=== PATIENT | male | born 1965 | race Caucasian/White ===

== ENCOUNTER → 2022-05-03 | Outpatient (CLI) | payer OTHER, MEDICAID, SELFPAY | END | disposition home or self-care (01) | PROVIDERS: Visit Provider Otolaryngology | DX: H92.13 Otorrhea, bilateral (principal) | CPT/HCPCS: 87070; 87075; 87077; 87205 ==

== ENCOUNTER 2024-07-08 12:24 | Emergency (ER) | payer OTHER, MEDICAID, SELFPAY ==
[2024-07-08 12:25] VITALS: BP 147/85; PULSE 61; RESP 14; TEMP 36.8; O2SAT 99; BMI 27.5
--- NOTE | 2024-07-08 12:43 | EKG12_ITS ---
Test Reason : PALPITATIONS Blood Pressure : / mmHG Vent. Rate : 060 BPM Atrial Rate : 060 BPM P-R Int : 350 ms QRS Dur : 084 ms QT Int : 416 ms P-R-T Axes : 040 049 -21 degrees QTc Int : 416 ms Sinus rhythm with 1st degree A-V block T wave abnormality, consider inferior ischemia Abnormal ECG Confirmed by NETTE BARDALES, KRISHAN ([id number]), visual effects editor JOHNIE VILLA ([id number]) on 07/09/2024 2:54:38 PM Referred By: Sole Mendoza Confirmed By:KRISHAN PERDUE MD
--- NOTE | 2024-07-08 12:55 | RAD_ITS ---
STUDY: X-RAY CHEST REASON FOR EXAM: Male, 58 years old. Chest pain TECHNIQUE: PA and lateral views of the chest. COMPARISON: Comparison is made with prior study dated April 02, 2015. FINDINGS: EKG electrodes are seen. Hyperinflation. The lungs are clear. There is no demonstrated pleural abnormality. Normal size heart. Normal mediastinum and nick. Normal visualized pulmonary arteries. Normal visualized aortic arch and descending thoracic aorta. There are degenerative changes of the visualized thoracic spine. Normal visualized ribs, clavicles, and shoulders. There is no demonstrated abnormality of the visualized soft tissue structures of the upper abdomen. RAD/Chest PA and Lateral IMPRESSION: Hyperinflation. No acute abnormality is seen. Electronically Signed: William Beal MD at 13:25 EDT ,
[2024-07-08 13:01] LABS: Absolute Lymphocyte Count 1.43 X10^3/uL (0.83-4.51); Absolute Neutrophil Count 5.4 X10^3/uL (2.0-7.7); Basophil# 0.03 X10^3/uL; Basophil% 0.4 % (0-1); Eosinophil# 0.07 X10^3/uL; Eosinophils% 0.9 % (0-5); Hematocrit 47.8 % (40-54); Hemoglobin 16.6 g/dL (13.0-16.5); Lymphocyte # 1.43 X10^3/ul (0.83-4.51); Lymphocyte % 18.8 % (19-41); Mean Corp Hgb Conc 34.7 g/dL (32-36); Mean Corpuscular Hgb 31.4 pg (27.0-32.0); Mean Corpuscular Volume 90.5 fL (80-94); Mean Platelet Vol. 9.4 fl (6.2-12.0); Monocyte# 0.62 X10^3/uL; Monocyte% 8.2 % (0-10); NRBC Flagged by Analyzer 0 % (0-5); Neutrophil # 5.41 X10^3/uL (2.7-7.7); Neutrophil % 71.3 % (47-70); Platelet Count 305 K/mm3 (150-450); RBC Distribution Width CV 12.1 % (11.6-14.6); RBC Distribution Width SD 40.3 fl (35.1-43.9); Red Blood Count 5.28 M/mm3 (4.6-6.2); White Blood Count 7.6 K/mm3 (4.4-11.0)
[2024-07-08 13:17] LABS: Anion Gap 6 (5-15); BUN 15 mg/dL (7-18); BUN/Creat Ratio 15.6 RATIO (10-20); Calcium,Total 9.4 mg/dL (8.5-10.1); Chloride 103 mmol/L (98-107); Creatinine, Serum 0.96 mg/dL (0.70-1.30); EST Glomerular Filtration Rate 85 mL/min (>60); Est Glom Filt Rate - Afr Amer 103 mL/min (>60); Estimated Creatinine Clearance 93.18 ml/min; Glucose 89 mg/dL (74-106); Magnesium 2.1 mg/dL (1.6-2.6); Potassium 4.2 mmol/L (3.5-5.1); Sodium Level 136 mmol/L (136-145); Thyroid Stim Hormone (TSH) 0.877 uIU/mL (0.358-3.740); Troponin-I HS (w/2H Reflex) 39 pg/mL (3.0-78.0)
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
[2024-07-08 14:02] LABS: D-Dimer Quantitative (DVT/PE) < 0.27 FEU/ug/m (0.27-0.49)
[2024-07-08 14:25] VITALS: BP 133/82; PULSE 58; RESP 13; O2SAT 98
[2024-07-08 14:50] LABS: Reflex Troponin-HS? (from REC) Y
[2024-07-08 15:51] LABS: Troponin-I HS 36 pg/mL (3.0-78.0)
[2024-07-08 16:00] VITALS: BP 124/87; PULSE 62; RESP 14; O2SAT 98
[2024-07-08 17:07] VITALS: BP 124/87; PULSE 116; RESP 18; TEMP 36.6; O2SAT 99
== END 2024-07-08 17:10 | disposition home or self-care (01) ==
PROVIDERS: Emergency Provider Emergency Medicine; PCP Internal Medicine; Referring Provider Emergency Medicine; Visit Provider Emergency Medicine
DX: R00.2 Palpitations (principal); I10 Essential (primary) hypertension; Z79.899 Other long term (current) drug therapy
CPT/HCPCS: 71046; 80048; 83735; 84443; 84484; 85025; 85379; 93005; 99284; A4216